=== PATIENT | male | born 1960 ===

== ENCOUNTER 2019-02-09 11:18 | Emergency (ER) | payer OTHER ==
[~2019-02-09] VITALS: Ht 185.4 cm; Wt 68.0 kg
[~2019-02-09 11:18] MED LIST: ALBU90OI; ALBU90OI INH; ALFU10 PO; ASPI81EC PO; ATOR10; ATOR20 PO; ATOR40TA PO; AZIT250 PO; CARI350 PO; CLOP75 PO; DOCU100 PO; FISH OIL 1,0001 EAC1 PO; FLUO20; FLUSAL2505 IH; GABA300 PO; GABA400 PO; HYDMOR2 PO; Hair, Skin & N1 EACH PO; IBUP800 PO; INTE3SY; LACT10SY PO; LOVA40; NEBI5 PO; OMEP40CA12 PO; OXYACE5T PO; OXYC30; OXYC5; PRED10 PO; PROM25S PR; RIBA200; RISP2; RISP4; RXHYDMOR2 PO; SULTRIDS PO; THEO200ERA PO; TRIAOI; UBID100 PO; VARE1 PO; VILAZADONE PO
[2019-02-09] MEDS ORDERED: Keflex500 MG PO (11:45)
[2019-02-09] MEDS ORDERED: Norco 5-325 Ta1 EACH PO (11:45)
[2019-02-09] MEDS ORDERED: Bactrim Ds Tab1 EACH PO (11:45)
== END 2019-02-09 11:57 | disposition home or self-care (01) ==
LOC: ER 11:18
DX: L03.011 Cellulitis of right finger (principal); Z88.0 Allergy status to penicillin; Z88.8 Allergy status to other drugs, medicaments and biological substances; Z91.030 Bee allergy status; Z79.899 Other long term (current) drug therapy; Z79.82 Long term (current) use of aspirin; J44.9 Chronic obstructive pulmonary disease, unspecified; I25.2 Old myocardial infarction; I48.0 Paroxysmal atrial fibrillation; Z87.891 Personal history of nicotine dependence

== ENCOUNTER 2019-07-12 14:58 | Emergency (ER) | payer OTHER ==
[~2019-07-12] VITALS: Ht 182.9 cm; Wt 65.8 kg
[~2019-07-12 14:58] MED LIST changes: +Bactrim Ds Tab1 EACH PO; +Keflex500 MG PO; +Norco 5-325 Ta1 EACH PO
[2019-07-12] MEDS ORDERED: Percocet 7.5-31 EACH PO (18:15)
== END 2019-07-12 18:28 | disposition home or self-care (01) ==
LOC: ER 14:58
DX: S82.035A Nondisplaced transverse fracture of left patella, initial encounter for closed fracture (principal); M25.521 Pain in right elbow; W10.9XXA Fall (on) (from) unspecified stairs and steps, initial encounter; Z88.8 Allergy status to other drugs, medicaments and biological substances; Z88.0 Allergy status to penicillin; Z91.013 Allergy to seafood; Z79.82 Long term (current) use of aspirin; Z79.899 Other long term (current) drug therapy; J44.9 Chronic obstructive pulmonary disease, unspecified; I25.2 Old myocardial infarction; I48.0 Paroxysmal atrial fibrillation; Z87.891 Personal history of nicotine dependence
CPT/HCPCS: 29505; 73080; 73564; 99283-25